=== PATIENT | male | born 1955 | race Two or more races ===

== ENCOUNTER 2017-05-06 11:05 | Outpatient (CLI) | payer OTHER ==
[~2017-05-06] VITALS: Ht 177.8 cm; Wt 85.3 kg
[~2017-05-06 11:05] MED LIST: TUSSAFED EX LI118 ML PO; VENTOLIN HFA18 GM IH; ZITHROMAX500 MG PO
== END 2017-05-06 11:20 | disposition home or self-care (01) ==
LOC: OFIC 805 11:05
DX: H60.8X3 Other otitis externa, bilateral (principal)

== ENCOUNTER → 2018-12-30 | Outpatient (CLI) | payer OTHER | END | disposition home or self-care (01) | LOC: RAD 11:02 | DX: J45.41 Moderate persistent asthma with (acute) exacerbation (principal); S29.9XXA Unspecified injury of thorax, initial encounter ==

== ENCOUNTER → 2020-11-22 10:38 | Outpatient (CLI) | payer OTHER | END | disposition home or self-care (01) | LOC: RAD 10:38 | PROVIDERS: ATTEND Ophthalmology | DX: I10 Essential (primary) hypertension (principal); I15.8 Other secondary hypertension ==

== ENCOUNTER 2021-01-13 10:35 | Outpatient (CLI) | payer OTHER | END 2021-01-13 10:45 | disposition home or self-care (01) | LOC: PPH VACUNA 10:35 | PROVIDERS: ATTEND Emergency Medicine Pediatric Emergency Medicine | DX: Z23 Encounter for immunization (principal) ==

== ENCOUNTER 2021-03-15 12:38 | Outpatient (CLI) | payer OTHER | END 2021-03-15 12:42 | disposition home or self-care (01) | LOC: LAB 12:38 | PROVIDERS: ATTEND Emergency Medicine Hospice and Palliative Medicine | DX: R50.9 Fever, unspecified (principal); R06.02 Shortness of breath; Z03.818 Encounter for observation for suspected exposure to other biological agents ruled out; Z20.828 Contact with and (suspected) exposure to other viral communicable diseases ==

== ENCOUNTER 2021-03-20 12:34 | Outpatient (CLI) | payer OTHER | END 2021-03-20 12:48 | disposition home or self-care (01) | LOC: LAB 12:34 | PROVIDERS: ATTEND General Practice | DX: Z20.828 Contact with and (suspected) exposure to other viral communicable diseases (principal) ==

== ENCOUNTER 2021-07-03 09:00 | Outpatient (CLI) | payer OTHER | END 2021-07-03 09:15 | disposition home or self-care (01) | LOC: PPH VACUNA 09:00 | PROVIDERS: ATTEND Emergency Medicine Pediatric Emergency Medicine | DX: Z23 Encounter for immunization (principal) ==

== ENCOUNTER 2022-03-22 11:12 | Outpatient (CLI) | payer OTHER | END 2022-03-22 11:22 | disposition home or self-care (01) | LOC: PPH VACUNA 11:12 | PROVIDERS: ATTEND Emergency Medicine Pediatric Emergency Medicine | DX: Z23 Encounter for immunization (principal) ==

== ENCOUNTER 2022-05-25 08:10 | Outpatient (CLI) | payer OTHER | END 2022-05-25 08:30 | disposition home or self-care (01) | LOC: MRI 08:10 | DX: I63.9 Cerebral infarction, unspecified (principal) | CPT/HCPCS: 70551 ==

== ENCOUNTER 2024-08-21 13:31 | Outpatient (CLI) | payer OTHER ==
[2024-08-21 14:23] LABS: INFLUENZA A AG NEGATIVE (NEGATIVE); INFLUENZA B AG NEGATIVE (NEGATIVE)
[2024-08-21 14:25] LABS: COVID-19 AG POSITIVE (NEGATIVE)
== END 2024-08-21 14:06 | disposition home or self-care (01) ==
LOC: LAB 13:31
PROVIDERS: ATTEND General Practice
DX: Z11.52 Encounter for screening for COVID-19 (principal); Z20.89 Contact with and (suspected) exposure to other communicable diseases; J06.9 Acute upper respiratory infection, unspecified

== ENCOUNTER 2024-08-24 12:39 | Outpatient (CLI) | payer OTHER ==
[2024-08-24 13:21] LABS: COVID-19 AG NEGATIVE (NEGATIVE)
== END 2024-08-24 13:42 | disposition home or self-care (01) ==
LOC: LAB 12:39
PROVIDERS: ATTEND Preventive Medicine Public Health & General Preventive Medicine
DX: U07.1 COVID-19 (principal)